=== PATIENT | male | born 1985 | race Two or more races ===

== ENCOUNTER 2018-01-22 22:10 | Emergency (ER) | payer OTHER ==
[2018-01-22] MEDS ORDERED: LORazepam 0.5 MG TABLET PO STA (22:20)
--- NOTE | 2018-01-22 22:23 | ED Physician Documentation ---
PD HPI CHEST PAIN - Stated complaint Stated Complaint: CHEST PX - Chief complaint Chief Complaint: Cardiac - History obtained from History obtained from: Patient, Family - History of Present Illness Timing - onset: Today Timing - onset during: Rest Timing - details: Gradual onset, Still present Quality: Pressure, Tightness Location: Substernal, Left chest, Right chest Associated symptoms: Shortness of air Similar symptoms before: Has not had sx before Recently seen: Not recently seen - Additional information Additional information: Patient is a 33 year old male with a history of anxiety who is presenting to the emergency department for chest pain. Patient states that it started about two hours ago at rest. patient denies any exertional component to his pain. Patient states that he has never had anything like this before, but he has had two panic attacks in the past. patient denies any history of clots, recent travel or surgery or estrogen use. Review of Systems Constitutional: denies: Fever, Chills Eyes: reports: Reviewed and negative Ears: reports: Reviewed and negative Nose: denies: Rhinorrhea / runny nose, Congestion Throat: denies: Sore throat Cardiac: reports: Chest pain / pressure. denies: Pedal edema Respiratory: denies: Cough, Wheezing GI: denies: Nausea, Vomiting : reports: Reviewed and negative Skin: denies: Rash, Lesions Musculoskeletal: denies: Extremity pain, Extremity swelling Neurologic: denies: Headache, Head injury Psychiatric: reports: Anxiety Immunocompromised: denies: Immunocompromised PD PAST MEDICAL HISTORY - Present Medications Home Medications: Ambulatory Orders Medication Instructions Recorded Confirmed Nicotine Polacrilex [Nicorette] 2 mg BC Q4HR #20 gum 01/22/18 - Allergies Allergies/Adverse Reactions: Allergies Allergy/AdvReac Type Severity Reaction Status Date / Time No Known Drug Allergies Allergy Verified 01/22/18 22:19 PD ED PE NORMAL - General General: Alert and oriented X 3, Well developed/nourished - HEENT HEENT: Atraumatic, PERRL, Moist mucous membranes - Cardiac Cardiac: RRR, No murmur - Respiratory Respiratory: No respiratory distress, Clear bilaterally - Abdomen Abdomen: Soft, Non tender, Non distended - Derm Derm: Normal color, Warm and dry, No rash - Extremities Extremities: No deformity, No edema, No calf tenderness / cord - Neuro Neuro: Alert and oriented X 3, No motor deficit, No sensory deficit, Normal speech Eye Opening: Spontaneous Motor: Obeys Commands Verbal: Oriented GCS Score: 15 PD ED PE EXPANDED - General General: Alert, Anxious Results - Vitals Vitals: Vital Signs - 24 hr 01/22/18 22:13 Temperature 36.0 C L Heart Rate 71 Respiratory 17 Rate Blood Pressure 145/94 H O2 Saturation 98 Oxygen O2 Source Room air - EKG (time done) 2215 Rate: Rate (enter#) (67) Rhythm: NSR Belt: Normal Intervals: Normal UT QRS: Normal Compare to prior EKG: Old EKG unavailable - Labs Labs: Laboratory Tests 01/22/18 22:48 Troponin I < 0.04 - Rads (name of study) chest x-ray Radiology: Final report received (normal) PD MEDICAL DECISION MAKING - ED course Complexity details: reviewed old records, reviewed results, re-evaluated patient , considered differential, d/w patient, d/w family ED course: Patient was seen and examined at bedside. patient was well appearing and in no acute distress. ekg was performed and was within normal limits. patient was treated with ativan 0.5 mg. chest x-ray was performed and was negative as well as a troponin. Patient felt a lot better after the ativan. Patient had a HEART score of 1 and PERC score of zero. A discussion about smoking cessation was had with the patient and a prescription for nicorette was written. Patient required no further work up and was stable for discharge with outpatient follow up. Departure - Departure Disposition: 01 Home, Self Care Clinical Impression: Atypical chest pain Condition: Good Instructions: ED Chest Pain NonCardiac Follow-Up: primary,care provider [Other] - As Needed Prescriptions: Nicotine Polacrilex [Nicorette] 2 mg BC Q4HR #20 gum Comments: Your diagnostics today were within normal limits. While it is difficult to say what exactly is causing your pain it is unlikely cardiac or pulmonary in nature. There is likely a component of anxiety with this pain. You should follow up with your doctor if the symptoms become more frequent. You may return to the emergency department at any time for new, worsening or uncontrollable symptoms.
[2018-01-22 22:24] VITALS: BP 145/94
--- NOTE | 2018-01-22 22:47 | XRAY Report ---
EXAM: CHEST RADIOGRAPHY EXAM DATE: 01/22/2018 10:32 PM. CLINICAL HISTORY: Chest pain. COMPARISON: None. TECHNIQUE: 2 views. FINDINGS: Lungs/Pleura: No focal opacities evident. No pleural effusion. No pneumothorax. Normal volumes. Mediastinum: Heart and mediastinal contours are unremarkable. Other: None. IMPRESSION: Normal 2-view chest radiography. [facility] Referring Provider Line: [phone] SITE ID: [id number]
== END 2018-01-22 23:24 | disposition home or self-care (01) ==
LOC: ED 22:10
DX: R07.89 Other chest pain (principal); F41.9 Anxiety disorder, unspecified
CPT/HCPCS: 36415; 71046; 84484; 93005; 99283; 99284; A9270